=== PATIENT | male | born 1965 | race Caucasian/White ===

== ENCOUNTER 2018-12-26 20:54 | Inpatient (IN) | payer OTHER ==
[~2018-12-26] VITALS: Ht 177.8 cm; Wt 104.0 kg
[~2018-12-26 20:54] MED LIST: CARV6.25 PO; CYAN100080 PO; DOCU-144 PO; GABA400C PO; HYDR-3980 PO; HYDR25TA6 PO; LISI2.5T59 PO; LORA-441 PO; ONDA4TAB13 PO; PANT40TA3 PO; TRAM50TA2 PO; ZINC220C5 PO; ZOLP10TA PO
[2018-12-27] MEDS ORDERED: NA BICARBONATE 8.4% 50 ML SYG IV ONE (01:30)
[2018-12-27] MEDS ORDERED: CALCIUM GLUCONATE 10% 1 GM in DEXTROSE 5% 100 ML IVPB ONE (01:30)
[2018-12-27] MEDS ORDERED: SOD CHLORIDE 0.9% 1,000 ML IV SCH (01:49)
[2018-12-27] MEDS ORDERED: AMLODIPINE 5 MG TAB PO ONE (02:00)
[2018-12-27] MEDS ORDERED: LORAZEPAM 0.5 MG TAB PO PRN (02:00)
[2018-12-27] MEDS ORDERED: ACETAMINOPHEN 325 MG TAB PO PRN (02:00)
[2018-12-27] MEDS ORDERED: ONDANSETRON 4 MG INJ IV PRN (02:00)
[2018-12-27] MEDS ORDERED: NITROGLYCERIN (SL) 0.4 MG TAB SL PRN (02:00)
[2018-12-27] MEDS ORDERED: NACL 0.9% 3 ML SYG IV SCH (02:00)
[2018-12-27] MEDS ORDERED: SOD CHLORIDE 0.9% 1,000 ML IV ONE (02:00)
[2018-12-27] MEDS ORDERED: NA POLYST SULFON 15 GM/60 ML BTL PO ONE (02:00)
[2018-12-27 07:25] VITALS: BP 149/84; PULSE 81; RESP 20
[2018-12-27] MEDS: HEPARIN 5,000 UNIT/1 ML VIAL SC SCH ×3 (07:30→22:01)
[2018-12-27 10:00] VITALS: Ht 177.8 cm; Wt 104.0 kg
[2018-12-27 11:25] VITALS: BP 150/88; PULSE 83; RESP 20
[2018-12-27 15:20] VITALS: BP 190/105; PULSE 94; RESP 18
[2018-12-27] MEDS: hydrALAzine 20 MG INJ IV PRN (18:24)
[2018-12-27] MEDS: morphine 2 MG INJ IV PRN (22:18)
[2018-12-27 23:42] VITALS: BP 132/83; PULSE 80; RESP 20
[2018-12-28 03:32] VITALS: BP 143/88; PULSE 74; RESP 20
[2018-12-28] MEDS: HEPARIN 5,000 UNIT/1 ML VIAL SC SCH ×3 (06:12→21:52)
[2018-12-28 07:26] VITALS: BP 161/85; PULSE 81; RESP 18
[2018-12-28] MEDS: AMLODIPINE 10 MG TAB PO SCH (08:23)
[2018-12-28] MEDS: morphine 2 MG INJ IV PRN ×2 (08:29→23:27)
[2018-12-28 11:28] VITALS: BP 129/78; PULSE 70; RESP 18
[2018-12-28] MEDS: ONDANSETRON 4 MG INJ IV PRN (12:52)
[2018-12-28] MEDS: METOCLOPRAMIDE 10 MG INJ IV PRN ×2 (15:37→23:02)
[2018-12-28] MEDS: PANTOPRAZOLE 40 MG INJ IV SCH (18:02)
[2018-12-28 20:00] VITALS: BP 168/94; PULSE 80; RESP 19
[2018-12-28] MEDS: ZOLPIDEM 5 MG TAB PO PRN (22:02)
[2018-12-28] MEDS: hydrALAzine 20 MG INJ IV PRN (22:03)
[2018-12-28] MEDS ORDERED: DIMETHICONE STICK TOP PRN (23:20)
[2018-12-29] VITALS: BP 129/80; PULSE 85; RESP 18
[2018-12-29 04:00] VITALS: BP 135/77; PULSE 79; RESP 18
[2018-12-29] MEDS: PANTOPRAZOLE 40 MG INJ IV SCH ×2 (05:56→17:05)
[2018-12-29] MEDS: HEPARIN 5,000 UNIT/1 ML VIAL SC SCH ×3 (05:59→21:32)
[2018-12-29 07:32] VITALS: BP 135/80; PULSE 73; RESP 20
[2018-12-29] MEDS: AMLODIPINE 10 MG TAB PO SCH (08:37)
[2018-12-29 11:21] VITALS: BP 154/88; PULSE 76; RESP 20
[2018-12-29] MEDS ORDERED: MAGNESIUM SULFATE 2 GM/50 ML 50 ML IVPB ONE (12:00)
[2018-12-29] MEDS: DEXTROSE 5%-0.45% NACL 1,000 ML IV SCH (12:38)
[2018-12-29] MEDS: METOCLOPRAMIDE 10 MG INJ IV PRN (12:38)
[2018-12-29] MEDS: ONDANSETRON 4 MG INJ IV PRN ×2 (14:17→21:28)
[2018-12-29] MEDS: morphine 2 MG INJ IV PRN ×2 (14:52→21:29)
[2018-12-29 15:26] VITALS: BP 151/81; PULSE 73; RESP 20
[2018-12-29 20:00] VITALS: BP 164/85; PULSE 74; RESP 18
[2018-12-29] MEDS: ZOLPIDEM 5 MG TAB PO PRN (21:27)
[2018-12-30] VITALS (15 sets, daily range): BP systolic 97–158; BP diastolic 53–76; PULSE 65–78; RESP 15–20
[2018-12-30] MEDS: morphine 2 MG INJ IV PRN ×2 (03:37→19:56)
[2018-12-30] MEDS: DEXTROSE 5%-0.45% NACL 1,000 ML IV SCH ×3 (03:41→21:40)
[2018-12-30] MEDS: ONDANSETRON 4 MG INJ IV PRN ×2 (03:41→15:37)
[2018-12-30] MEDS: PANTOPRAZOLE 40 MG INJ IV SCH ×2 (05:21→18:02)
[2018-12-30] MEDS: HEPARIN 5,000 UNIT/1 ML VIAL SC SCH ×3 (05:22→21:39)
[2018-12-30] MEDS: AMLODIPINE 10 MG TAB PO SCH (09:00)
[2018-12-30] MEDS ORDERED: ONDANSETRON 4 MG INJ ONE (15:35)
[2018-12-30] MEDS ORDERED: PROPOFOL 20 ML ONE (16:26)
[2018-12-30] MEDS ORDERED: FENTAnyl 50 MCG/ML VIAL ONE (16:26)
[2018-12-30] MEDS ORDERED: EPHEDrine 25 MG/5 ML SYG ONE (16:37)
[2018-12-30] MEDS: METOCLOPRAMIDE 10 MG INJ IV SCH ×2 (18:02→23:20)
[2018-12-30] MEDS: ZOLPIDEM 5 MG TAB PO PRN (21:36)
[2018-12-31] VITALS: BP 115/53; PULSE 73; RESP 17
[2018-12-31] MEDS: morphine 2 MG INJ IV PRN ×2 (02:13→16:01)
[2018-12-31 04:00] VITALS: BP 90/52; PULSE 54; RESP 18
[2018-12-31] MEDS: PANTOPRAZOLE 40 MG INJ IV SCH (05:13)
[2018-12-31] MEDS: METOCLOPRAMIDE 10 MG INJ IV SCH (05:14)
[2018-12-31] MEDS: HEPARIN 5,000 UNIT/1 ML VIAL SC SCH ×2 (05:20→20:37)
[2018-12-31 07:34] VITALS: BP 107/67; PULSE 67; RESP 20
[2018-12-31] MEDS: ONDANSETRON 4 MG INJ IV PRN (09:01)
[2018-12-31] MEDS: AMLODIPINE 10 MG TAB PO SCH (09:02)
[2018-12-31] MEDS ORDERED: MAGNESIUM SULFATE 2 GM/50 ML 50 ML IVPB ONE (11:30)
[2018-12-31 11:31] VITALS: BP 101/59; PULSE 68; RESP 20
[2018-12-31 15:52] VITALS: BP 119/58; PULSE 69; RESP 20
[2018-12-31] MEDS: PANTOPRAZOLE (EC) 40 MG TAB PO SCH (18:18)
[2018-12-31 19:54] VITALS: BP 117/62; PULSE 69; RESP 18
[2018-12-31] MEDS: ZOLPIDEM 5 MG TAB PO PRN (21:44)
[2019-01-01 00:22] VITALS: BP 115/66; PULSE 67; RESP 18
[2019-01-01] MEDS: morphine 2 MG INJ IV PRN ×3 (00:23→20:52)
[2019-01-01 04:51] VITALS: BP 137/69; PULSE 55
[2019-01-01] MEDS: PANTOPRAZOLE (EC) 40 MG TAB PO SCH ×2 (05:11→17:06)
[2019-01-01 07:51] VITALS: BP 126/71; PULSE 66; RESP 18
[2019-01-01] MEDS: AMLODIPINE 10 MG TAB PO SCH (08:35)
[2019-01-01] MEDS: HEPARIN 5,000 UNIT/1 ML VIAL SC SCH ×2 (08:41→20:58)
[2019-01-01 11:44] VITALS: BP 114/58; PULSE 70; RESP 19
[2019-01-01] MEDS: TRIMETHOBENZAMIDE 100 MG/ML VIAL IM PRN (15:42)
[2019-01-01 16:20] VITALS: BP 120/69; PULSE 69; RESP 18
[2019-01-01] MEDS: ONDANSETRON 4 MG TAB PO SCH (17:06)
[2019-01-01 20:00] VITALS: BP 96/54; PULSE 66; RESP 20
[2019-01-01] MEDS: ZOLPIDEM 5 MG TAB PO PRN (22:11)
[2019-01-02] VITALS: BP 96/54; PULSE 69; RESP 18
[2019-01-02] MEDS: ONDANSETRON 4 MG TAB PO SCH ×2 (00:12→05:18)
[2019-01-02] MEDS: morphine 2 MG INJ IV PRN ×3 (03:41→20:23)
[2019-01-02 04:00] VITALS: BP 148/87; PULSE 68; RESP 18
[2019-01-02] MEDS: PANTOPRAZOLE (EC) 40 MG TAB PO SCH ×2 (05:18→17:39)
[2019-01-02 07:04] VITALS: BP 121/63; PULSE 70; RESP 16
[2019-01-02] MEDS: ONDANSETRON 4 MG INJ IV PRN ×2 (07:44→17:39)
[2019-01-02] MEDS: AMLODIPINE 10 MG TAB PO SCH (07:44)
[2019-01-02] MEDS: HEPARIN 5,000 UNIT/1 ML VIAL SC SCH ×2 (07:45→20:23)
[2019-01-02] MEDS: TRIMETHOBENZAMIDE 100 MG/ML VIAL IM PRN (10:45)
[2019-01-02 11:11] VITALS: BP 101/61; PULSE 61; RESP 16
[2019-01-02 15:33] VITALS: BP 121/67; PULSE 76; RESP 15
[2019-01-02 20:08] VITALS: BP 128/70; PULSE 73; RESP 19
[2019-01-02] MEDS: ZOLPIDEM 5 MG TAB PO PRN (22:01)
[2019-01-02] MEDS: METOCLOPRAMIDE 10 MG INJ IV PRN (23:38)
[2019-01-03] VITALS: BP 119/65; PULSE 69; RESP 18
[2019-01-03] MEDS: morphine 2 MG INJ IV PRN ×3 (02:22→18:53)
[2019-01-03 04:00] VITALS: BP 132/67; PULSE 63; RESP 18
[2019-01-03] MEDS: PANTOPRAZOLE (EC) 40 MG TAB PO SCH ×2 (06:31→17:02)
[2019-01-03 07:47] VITALS: BP 129/68; PULSE 71; RESP 18
[2019-01-03] MEDS: AMLODIPINE 10 MG TAB PO SCH (08:54)
[2019-01-03] MEDS: HEPARIN 5,000 UNIT/1 ML VIAL SC SCH ×2 (08:57→20:29)
[2019-01-03 12:05] VITALS: BP 120/65; PULSE 66; RESP 18
[2019-01-03] MEDS: METOCLOPRAMIDE 10 MG INJ IV PRN (14:38)
[2019-01-03] MEDS: ONDANSETRON 4 MG INJ IV PRN (14:38)
[2019-01-03 15:49] VITALS: BP 125/68; PULSE 67; RESP 18
[2019-01-03] MEDS ORDERED: MAGNESIUM SULFATE 2 GM/50 ML 50 ML IVPB ONE (17:00)
[2019-01-03 20:00] VITALS: BP 118/68; PULSE 68; RESP 18
[2019-01-03] MEDS: ZOLPIDEM 5 MG TAB PO PRN (21:26)
[2019-01-04] VITALS: BP 124/62; PULSE 69; RESP 18
[2019-01-04] MEDS: morphine 2 MG INJ IV PRN ×2 (01:42→08:15)
[2019-01-04 04:00] VITALS: BP 114/61; PULSE 65; RESP 18
[2019-01-04] MEDS: PANTOPRAZOLE (EC) 40 MG TAB PO SCH ×2 (05:18→17:37)
[2019-01-04] MEDS: TRIMETHOBENZAMIDE 100 MG/ML VIAL IM PRN ×2 (07:37→22:02)
[2019-01-04 07:38] VITALS: BP 121/65; PULSE 65; RESP 18
[2019-01-04] MEDS: AMLODIPINE 10 MG TAB PO SCH (08:14)
[2019-01-04] MEDS: HEPARIN 5,000 UNIT/1 ML VIAL SC SCH ×2 (08:19→20:30)
[2019-01-04 11:52] VITALS: BP 124/66; PULSE 65; RESP 18
[2019-01-04] MEDS: METOCLOPRAMIDE 10 MG INJ IV PRN (13:49)
[2019-01-04 15:48] VITALS: BP 127/71; PULSE 67; RESP 18
[2019-01-04] MEDS: ACETAMINOPHEN 325 MG TAB PO PRN (16:16)
[2019-01-04] MEDS: ONDANSETRON 4 MG INJ IV PRN (19:02)
[2019-01-04 19:23] VITALS: BP 117/61; PULSE 68; RESP 18
[2019-01-04] MEDS: ZOLPIDEM 5 MG TAB PO PRN (21:59)
[2019-01-05] VITALS: BP 116/61; PULSE 56; RESP 20
[2019-01-05 04:22] VITALS: BP 125/68; PULSE 61; RESP 18
[2019-01-05] MEDS: ACETAMINOPHEN 325 MG TAB PO PRN ×3 (04:30→17:12)
[2019-01-05] MEDS: ONDANSETRON 4 MG INJ IV PRN (04:30)
[2019-01-05] MEDS: PANTOPRAZOLE (EC) 40 MG TAB PO SCH ×2 (06:15→17:12)
[2019-01-05 07:49] VITALS: BP 121/67; PULSE 67; RESP 18
[2019-01-05] MEDS: AMLODIPINE 10 MG TAB PO SCH (08:19)
[2019-01-05] MEDS: HEPARIN 5,000 UNIT/1 ML VIAL SC SCH ×2 (08:26→20:12)
[2019-01-05 12:28] VITALS: BP 118/62; PULSE 70; RESP 18
[2019-01-05 16:47] VITALS: BP 123/67; PULSE 67; RESP 20
[2019-01-05 19:22] VITALS: BP 132/70; PULSE 70; RESP 18
[2019-01-05] MEDS: TRIMETHOBENZAMIDE 100 MG/ML VIAL IM PRN (20:01)
[2019-01-05] MEDS: ZOLPIDEM 5 MG TAB PO PRN (21:55)
[2019-01-06 00:13] VITALS: BP 132/66; PULSE 65; RESP 18
[2019-01-06] MEDS: ACETAMINOPHEN 325 MG TAB PO PRN ×2 (02:04→09:39)
[2019-01-06 03:30] VITALS: BP 118/66; PULSE 84; RESP 18
[2019-01-06 03:52] VITALS: BP 126/67; PULSE 67; RESP 17
[2019-01-06] MEDS: PANTOPRAZOLE (EC) 40 MG TAB PO SCH ×2 (05:59→17:53)
[2019-01-06 08:05] VITALS: BP 153/75; PULSE 60; RESP 18
[2019-01-06] MEDS: AMLODIPINE 10 MG TAB PO SCH (09:26)
[2019-01-06] MEDS: HEPARIN 5,000 UNIT/1 ML VIAL SC SCH ×2 (09:27→20:37)
[2019-01-06 14:00] VITALS: BP 120/64; PULSE 60; RESP 18
[2019-01-06] MEDS: GABAPENTIN 400 MG CAP PO SCH (20:37)
[2019-01-06 20:38] VITALS: BP 135/82; PULSE 67; RESP 18
[2019-01-06] MEDS: ZOLPIDEM 5 MG TAB PO PRN (22:33)
[2019-01-07 02:48] VITALS: BP 145/83; PULSE 66; RESP 18
[2019-01-07] MEDS: PANTOPRAZOLE (EC) 40 MG TAB PO SCH ×2 (05:47→17:31)
[2019-01-07 08:24] VITALS: BP 136/69; PULSE 61; RESP 17
[2019-01-07] MEDS: GABAPENTIN 400 MG CAP PO SCH ×3 (09:08→20:34)
[2019-01-07] MEDS: AMLODIPINE 10 MG TAB PO SCH (09:10)
[2019-01-07] MEDS: HEPARIN 5,000 UNIT/1 ML VIAL SC SCH ×2 (09:13→20:37)
[2019-01-07 15:23] VITALS: BP 114/70; PULSE 67; RESP 18
[2019-01-07 20:00] VITALS: BP 128/68; PULSE 66; RESP 18
[2019-01-07 20:01] VITALS: BP 128/68; PULSE 66; RESP 18
[2019-01-07] MEDS: ACETAMINOPHEN 325 MG TAB PO PRN (20:34)
[2019-01-07] MEDS: ZOLPIDEM 5 MG TAB PO PRN (22:02)
[2019-01-08] MEDS: traMADol 50 MG TAB PO PRN ×2 (01:49→09:15)
[2019-01-08 02:00] VITALS: BP 119/79; PULSE 68; RESP 18
[2019-01-08] MEDS: PANTOPRAZOLE (EC) 40 MG TAB PO SCH (05:58)
[2019-01-08 07:49] VITALS: BP 114/73; PULSE 63; RESP 18
[2019-01-08] MEDS: GABAPENTIN 400 MG CAP PO SCH ×2 (09:16→13:17)
[2019-01-08] MEDS: AMLODIPINE 10 MG TAB PO SCH (09:16)
[2019-01-08] MEDS: HEPARIN 5,000 UNIT/1 ML VIAL SC SCH (09:17)
[2019-01-08 13:49] VITALS: BP 104/57; PULSE 64; RESP 18
[2019-01-10 20:00] VITALS: BP 131/73; PULSE 75; RESP 18
== END 2019-01-08 17:05 | disposition home or self-care (01) | DRG 392 ==
LOC: E/R 20:54 → TEL 12-27 01:50 → MS3 01-06 03:15
PROVIDERS: ADMIT Family Medicine; ATTEND Internal Medicine
PROC: 0DB68ZX Excision of Stomach, Via Natural or Artificial Opening Endoscopic, Diagnostic (ICD-10-PCS; principal; 2018-12-30 13:00)
DX: K20.9 Esophagitis, unspecified (principal); N17.9 Acute kidney failure, unspecified; I42.9 Cardiomyopathy, unspecified; K29.70 Gastritis, unspecified, without bleeding; G35 Multiple sclerosis; E87.5 Hyperkalemia; I10 Essential (primary) hypertension; E11.9 Type 2 diabetes mellitus without complications; Z79.84 Long term (current) use of oral hypoglycemic drugs; R53.81 Other malaise; R07.9 Chest pain, unspecified; R11.2 Nausea with vomiting, unspecified; E78.5 Hyperlipidemia, unspecified; R33.9 Retention of urine, unspecified; N28.1 Cyst of kidney, acquired; E66.9 Obesity, unspecified; Z68.32 Body mass index [BMI] 32.0-32.9, adult
CPT/HCPCS: 36415; 71045; 74018; 76775; 80048; 80061; 80076; 81001; 82306; 82550; 82553; 82607; 82746; 82962; 83036; 83735; 84100; 84443; 84484; 85025; 88305; 88312; 93005; 93306; 93970; 96374; 97110; 97116; 97162; 97530; C9113; J0360; J0610; J1644; J2270; J2405; J2765; J3010; J3250; J3475; J7030; J7042